=== PATIENT | female | born 1975 | race Caucasian/White ===

== ENCOUNTER 2016-12-14 19:18 | Emergency (ER) | payer OTHER ==
[~2016-12-14 19:18] MED LIST: CRANBERRY TABLET; IBUPROFEN; LEVOTHYROXINE75 MC1 PO; LEXAPRO PO; PREDNISONE PO; VITAMIN B12-FO1 EACH PO; VITAMIN B6; VITAMIN D1000 UNIT PO; ZOVIRAX800 MG PO
[2016-12-14] MEDS ORDERED: PRENATAL TABLE1 EACH (19:25)
[2016-12-14] MEDS ORDERED: ACID REDUCER150 MG (19:26)
== END 2016-12-14 20:33 | disposition home or self-care (01) ==
LOC: SED 19:18
DX: S16.1XXA Strain of muscle, fascia and tendon at neck level, initial encounter (principal); F41.9 Anxiety disorder, unspecified; E03.9 Hypothyroidism, unspecified; V43.62XA Car passenger injured in collision with other type car in traffic accident, initial encounter
CPT/HCPCS: 99284

== ENCOUNTER 2017-03-04 10:02 | Emergency (ER) | payer OTHER ==
[~2017-03-04 10:02] MED LIST changes: +ACID REDUCER150 MG; +PRENATAL TABLE1 EACH
== END 2017-03-04 10:48 | disposition home or self-care (01) ==
LOC: SED 10:02
DX: O9A.213 Injury, poisoning and certain other consequences of external causes complicating pregnancy, third trimester (principal); S60.455A Superficial foreign body of left ring finger, initial encounter; R03.0 Elevated blood-pressure reading, without diagnosis of hypertension; O99.343 Other mental disorders complicating pregnancy, third trimester; F41.9 Anxiety disorder, unspecified; Z3A.37 37 weeks gestation of pregnancy; X58.XXXA Exposure to other specified factors, initial encounter; Y92.9 Unspecified place or not applicable
CPT/HCPCS: 99283